=== PATIENT | male | born 1950 | race Caucasian/White ===

== ENCOUNTER → 2021-03-23 | Outpatient (CLI) | payer MEDICARE | LOC: EXRD 15:49 | DX: I48.91 Unspecified atrial fibrillation (principal); R91.8 Other nonspecific abnormal finding of lung field | CPT/HCPCS: 71046 ==

== ENCOUNTER → 2021-03-24 | Outpatient (CLI) | payer MEDICARE ==
[2021-03-24 13:47] LABS: HEMOGLOBIN 12.4 gm/dl (14.0-17.5); RED BLOOD COUNT 3.74 M/UL (4.20-5.50); WHITE BLOOD COUNT 8.9 K/UL (4.5-11.0)
[2021-03-27 13:48] LABS: IMMUNOGLOBULIN A, QN, SERUM 273 mg/dL; IMMUNOGLOBULIN M, QN, SERUM 39 mg/dL
[2021-03-27 16:11] LABS: IMMUNOGLOBULIN G, QN, SERUM 874 mg/dL (603-1613)
== END ==
LOC: LAB 13:13
PROVIDERS: Internal Medicine Pulmonary Disease
DX: J18.9 Pneumonia, unspecified organism (principal)
CPT/HCPCS: 36415; 82784; 82787; 85025; 87015; 87070; 87116; 87205